=== PATIENT | female | born 1975 | race African-American/Black ===

== ENCOUNTER 2019-04-14 03:00 | Inpatient (IN) | payer OTHER ==
[2019-04-14 03:51] LABS: Hematocrit 39.7 % (30.3-42.9); Hemoglobin 13.8 gm/dl (10.1-14.3); Mean Corpuscular HGB Conc 35 % (30-34); Mean Corpuscular Volume 83 fl (79-97); Platelet Count 251 K/mm3 (140-440); Red Cell Distribution Width 14.5 % (13.2-15.2)
[2019-04-14 03:58] LABS: Calcium 9.7 mg/dL (8.4-10.2)
[2019-04-14] MEDS ORDERED: MORPHINE IV ONE (04:08)
[2019-04-14] MEDS ORDERED: ZOFRAN IV ONE (04:08)
[2019-04-14] MEDS ORDERED: NACL 0.9% 1000 ML 1,000 ML IV ONE (04:08)
--- NOTE | 2019-04-14 04:12 | Emergency Department Report ---
ED Abdominal Pain HPI - General Chief Complaint: Abdominal Pain Stated Complaint: ABD PAIN/N/N Time Seen by Provider: 04/14/19 04:02 Source: patient, family Mode of arrival: Ambulatory Limitations: Language Barrier - History of Present Illness Initial Comments: Mrs. Fu is a very pleasant 43-year-old female Swazi-speaking who presents with severe right lower quadrant and left lower quadrant abdominal pain. Daughter at the bedside provided Swazi interpretation. Pain began gradually 2 days ago on Sunday. Improved on Sunday. Then awakened her from sleep this morning. +vomiting and diarrhea. She has subjective fever with chills. She is healthy without significant past medical history. She did have a history of tubal ligation. No other reported abdominal surgeries. MD Complaint: abdominal pain -: Gradual, days(s) (2) Location: LLQ, RLQ Severity scale (0 -10): 10 Quality: cramping, sharp Consistency: constant Worsens With: movement Associated Symptoms: nausea, vomiting, diarrhea, fever, chills - Related Data Allergies Allergy/AdvReac Type Severity Reaction Status Date / Time No Known Allergies Allergy Unverified 04/14/19 03:09 ED Review of Systems ROS: Stated complaint: ABD PAIN/N/N Other details as noted in HPI Comment: All other systems reviewed and negative Constitutional: fever, malaise Gastrointestinal: abdominal pain, nausea, vomiting, diarrhea ED Past Medical Hx - Past Medical History Previous Medical History?: No - Surgical History Past Surgical History?: Yes Additional Surgical History: Tubaligation - Social History Smoking Status: Never Smoker Substance Use Type: None ED Physical Exam - General Limitations: Language Barrier General appearance: alert, other (nontoxic but appears uncomfortable in severe pain) - Head Head exam: Present: atraumatic, normocephalic - Eye Eye exam: Present: normal appearance - ENT ENT exam: Present: mucous membranes moist - Neck Neck exam: Present: normal inspection, full ROM - Respiratory Respiratory exam: Present: normal lung sounds bilaterally. Absent: respiratory distress, wheezes, rales, rhonchi - Cardiovascular Cardiovascular Exam: Present: normal rhythm, tachycardia, normal heart sounds. Absent: systolic murmur, diastolic murmur, rubs, gallop - GI/Abdominal GI/Abdominal exam: Present: soft, tenderness (right lower quadrant left lower quadrant tenderness), guarding, normal bowel sounds. Absent: distended, rebound - Extremities Exam Extremities exam: Present: normal inspection - Back Exam Back exam: Present: normal inspection - Neurological Exam Neurological exam: Present: alert, oriented X3 - Psychiatric Psychiatric exam: Present: normal affect, normal mood - Skin Skin exam: Present: warm, dry, intact, pallor. Absent: rash ED Course Vital Signs 04/14/19 04/14/19 04:03 04:25 Temperature 98.9 F Pulse Rate 118 H Respiratory 16 16 Rate Blood Pressure 103/64 [Left] O2 Sat by Pulse 100 Oximetry ED Medical Decision Making - Lab Data Result diagrams: 04/14/19 03:13 04/14/19 03:13 - Radiology Data Radiology results: report reviewed I spoke personally with the radiologist who informed me of CT findings of acute appendicitis with perforation - Medical Decision Making Acute appendicitis, sepsis Sepsis protocol instituted with IV fluid bolus antibiotics. Labs remarkable for severe leukocytosis 27,000, TORI I consulted general surgeon Dr. Denis Admitted to hospitalist service Critical care attestation.: If time is entered above; I have spent that time in minutes in the direct care of this critically ill patient, excluding procedure time. ED Disposition Clinical Impression: Acute perforated appendicitis, Sepsis, TORI (acute kidney injury) Disposition: OP ADMIT IP TO THIS HOSP Is pt being admited?: Yes Does the pt Need Aspirin: No Condition: Stable
[2019-04-14 04:23] LABS: Basophils % (Manual) 0 % (0.0-1.8); Eosinophils % (Manual) 0 % (0.0-4.3); Monocytes % (Manual) 4.5 % (0.0-7.3); Platelet Estimate Consistent w Auto; Total Cells Counted 200
[2019-04-14] MEDS ORDERED: NACL 0.9% 1000 ML IV ONE (04:41)
--- NOTE | 2019-04-14 05:21 | Cat Scan Report ---
PROCEDURE: CT ABDOMEN PELVIS WO CON TECHNIQUE: CT imaging is obtained through the abdomen and pelvis without contrast HISTORY: abd pain COMPARISONS: None FINDINGS: Imaged intrathoracic contents are unremarkable. Kidneys are normal in size, axis and position. No hydronephrosis or nephrolithiasis. The ureters are normal in course and caliber. No stones are seen within the urinary bladder. Retroverted uterus. The gallbladder is distended and contains multiple subcentimeter stones. Mild pericholecystic edema i s suggested. The liver, pancreas, spleen, and adrenal glands demonstrate an unremarkable noncontrast appearance. The appendix is dilated up to 2 cm and predominantly fluid-filled with adjacent stranding and edema. Small foci of possible extraluminal air are suggested near the origin of the appendix on axial series 2, image 126. Several appendicoliths are present at the origin measuring up to 13 mm. The small gisella l and colon are predominantly fluid-filled. There is a small volume of pelvic ascites. No marita pneum operitoneum or focal fluid collection to suggest abscess formation. Aorta is normal in course and caliber. Superficial soft tissues are unremarkable. No acute or aggressive appearing skeletal findings. IMPRESSION: Acute appendicitis. Small foci of extraluminal air adjacent to the origin of the appendix are concern ing for perforation. No marita pneumoperitoneum or abscess formation identified at this time. Dr. Taylor discussed findings with Dr. Washburn at 0417 Central Time on 04/14/2019 immediately following the examination. This document is electronically signed by Brett Taylor MD., Apr 14 2019 05:19:12 AM ET
[2019-04-14] MEDS ORDERED: SODIUM CHLORIDE FLUSH SYRINGE 10 ML IV PRN (05:41)
[2019-04-14] MEDS ORDERED: TYLENOL PO PRN (05:41)
--- NOTE | 2019-04-14 05:50 | History and Physical Report ---
History of Present Illness Date of examination: 04/14/19 History of present illness: 43-year-old woman with no medical history comes to the emergency room complaining of lower abdominal pain especially the right lower quadrant. Described the pain as a pressure-like sensation that started on Sunday, constant and radiated all over her belly, intensity 8/10. Pain felt bad on Sunday however he awoke her from sleep last night. Admits to fever chills Review of systems Constitutional: no weight loss Ears, eyes, nose, mouth and throat: no nasal congestion, no nasal discharge, no sinus pressure, no vision change, no red eye. Neck: No neck pain or rigidity. Cardiovascular: no palpitations, chest pain Respiratory: no cough, shortness of breath Gastrointestinal: no hematochezia Genitourinary : no frequency , no hematuria Musculoskeletal: no joint swelling or muscle ache Integumentary: no rash, no pruritis Neurological: no parathesias, no focal weakness Endocrine: no cold or heat intolerance, no polyuria or polydipsia Hematologic/Lymphatic: no easy bruising, no easy bleeding, no gland swelling Allergic/Immunologic: no urticaria, no angioedema. PAST MEDICAL HISTORY:none PAST SURGICAL HISTORY: Tubal ligation SOCIAL HISTORY: Denies alcohol, drugs, tobacco FAMILY HISTORY: Hypertension Medications and Allergies Allergies Allergy/AdvReac Type Severity Reaction Status Date / Time No Known Allergies Allergy Unverified 04/14/19 03:09 Home Medications Medication Instructions Recorded Confirmed Last Taken Type Amoxicillin/K Clav Tab [Augmentin 1 tab PO Q12HR #10 tab 04/16/19 Unknown Rx 875 mg] Fluconazole [Diflucan TAB] 200 mg PO QDAY #5 tablet 04/16/19 Unknown Rx oxyCODONE /ACETAMINOPHEN [Percocet 1 tab PO Q6H PRN #12 tablet 04/16/19 Unknown Rx 5/325 mg] Active Meds: Active Medications Acetaminophen (Tylenol) 650 mg PO Q4H PRN PRN Reason: Pain MILD(1-3)/Fever >100.5/OCAMPO Enoxaparin Sodium (Lovenox) 30 mg SUB-Q QDAY ANNA Metronidazole (Flagyl 500 Mg/100 Ml) 500 mg in 100 mls @ 100 mls/hr IV Q8HR ANNA; Protocol Sodium Chloride (Nacl 0.9% 1000 Ml) 1,000 mls @ 150 mls/hr IV DIRECT ANNA Morphine Sulfate (Morphine) 2 mg IV Q4H PRN PRN Reason: Pain, Moderate (4-6) Ondansetron HCl (Zofran) 4 mg IV Q4H PRN PRN Reason: Nausea And Vomiting Sodium Chloride (Sodium Chloride Flush Syringe 10 Ml) 10 ml IV BID ANNA Sodium Chloride (Sodium Chloride Flush Syringe 10 Ml) 10 ml IV PRN PRN PRN Reason: LINE FLUSH Exam - Physical Exam Narrative exam: General Apperance: The patient lying in bed, breathing comfortable HEENT: Normocephalic, atraumatic. Pupils equally round and reactive to light, EOMI, no sclericterus or JVD or thyromegaly or nodule. , no carotid bruit, mucous membranes moist, no exudate or erythema Heart: S1-S2, regular is rhythm Lungs: Clear to auscultation bilaterally, breathing comfortable Abdomen: Positive bowel sounds, soft, tender bilateral lower quadrant, no rebound or guarding, nondistended, no organomegaly Extremities: No edema cyanosis clubbing Skin: no rash, nodule, warm and dry Neuro: cranial nerves 2-12 intact, speech is fluent, motor/sensory intact - Constitutional Vitals: Temp Pulse Resp BP Pulse Ox 98.9 F 111 H 22 109/61 96 04/14/19 04:03 04/14/19 05:03 04/14/19 05:03 04/14/19 05:03 04/14/19 05:03 Results - Labs CBC & Chem 7: 04/16/19 09:39 04/16/19 09:39 Labs: Abnormal lab results 04/14/19 04/14/19 Range/Units 03:13 03:13 WBC 27.4 H (4.5-11.0) K/mm3 MCHC 35 H (30-34) % Seg Neuts % (Manual) 80.5 H (40.0-70.0) % Lymphocytes % (Manual) 0.5 L (13.4-35.0) % Seg Neutrophils # Man 22.1 H (1.8-7.7) K/mm3 Lymphocytes # (Manual) 0.1 L (1.2-5.4) K/mm3 Monocytes # (Manual) 1.2 H (0.0-0.8) K/mm3 Sodium 136 L (137-145) mmol/L Chloride 95.0 L (98-107) mmol/L Carbon Dioxide 19 L (22-30) mmol/L BUN 29 H (7-17) mg/dL Creatinine 2.6 H (0.7-1.2) mg/dL Glucose 133 H (65-100) mg/dL - Imaging and Cardiology CT scan - abdomen: report reviewed CT scan - pelvis: report reviewed Assessment and Plan Assessment Perforated appendicitis Acute renal failure Plan Admit to medicine start IV fluid, IV Zosyn, IV morphine surgery was consulted to see the patient in the emergency room Monitor kidney function, DVT prophylaxis
[2019-04-14 05:53] LABS: Calcium 8.9 mg/dL (8.4-10.2)
[2019-04-14] MEDS ORDERED: MAXIPIME/NS 2 GM/100 ML 2 GM/100 ML BAG IV SCH (06:00)
[2019-04-14] MEDS ORDERED: ZOSYN/NS 4.5GM/100ML 4.5 GM/100 ML VIAL IV SCH (06:00)
[2019-04-14] MEDS: ZOSYN/NS 2.25 GM/50ML 2.25 GM/50 ML BAG IV SCH ×3 (06:41→21:17)
[2019-04-14] MEDS: FLAGYL 500 MG/100 ML 500 MG/100 ML BAG IV SCH ×3 (07:31→23:14)
[2019-04-14] MEDS: NACL 0.9% 1000 ML 1,000 ML IV SCH ×2 (07:31→23:20)
[2019-04-14] MEDS ORDERED: NACL 0.9% 1000 ML 1,000 ML ONE ×3 (07:31→13:40)
[2019-04-14] MEDS ORDERED: ZOFRAN ONE ×3 (07:41→16:59)
[2019-04-14] MEDS ORDERED: MORPHINE ONE ×2 (07:41→16:40)
[2019-04-14] MEDS ORDERED: NACL 0.9% 1000 ML 1,000 ML IV SCH (08:00)
--- NOTE | 2019-04-14 09:24 | Event Note ---
Date: 04/14/19 Going to surgery for Perf appendicitis today
[2019-04-14] MEDS ORDERED: LOVENOX SUB-Q SCH (10:00)
--- NOTE | 2019-04-14 11:16 | Consultation ---
History of Present Illness Consult date: 04/14/19 Chief complaint: abdominal pain - History of present illness History of present illness: 43 yo F with no PMHx presents to ER with 3 days of worsening RLQ abdominal pain, sharp, nonradiating. No alleviating or exacerbating factors. Associated with n/v and f/c. She has never had pain like this before. Last BM yesterday. Past History Past Medical History: No medical history Past Surgical History: Social history: no significant social history Family history: no significant family history Medications and Allergies Allergies Allergy/AdvReac Type Severity Reaction Status Date / Time No Known Allergies Allergy Unverified 04/14/19 03:09 Active Meds: Active Medications Acetaminophen (Tylenol) 650 mg PO Q4H PRN PRN Reason: Pain MILD(1-3)/Fever >100.5/OCAMPO Metronidazole (Flagyl 500 Mg/100 Ml) 500 mg in 100 mls @ 100 mls/hr IV Q8HR ANNA; Protocol Last Admin: 04/14/19 07:31 Dose: 100 mls/hr Documented by: Sodium Chloride (Nacl 0.9% 1000 Ml) 1,000 mls @ 150 mls/hr IV DIRECT ANNA Last Admin: 04/14/19 07:31 Dose: 150 mls/hr Documented by: Piperacillin Sod/Tazobactam Sod (Zosyn/Ns 2.25 Gm/50ml) 2.25 gm in 50 mls @ 100 mls/hr IV Q6HR ANNA Last Admin: 04/14/19 06:41 Dose: 100 mls/hr Documented by: Sodium Chloride (Nacl 0.9% 1000 Ml) 1,000 mls @ 0 mls/hr IV ONCE ANNA Stop: 04/15/19 08:01 Morphine Sulfate (Morphine) 2 mg IV Q4H PRN PRN Reason: Pain, Moderate (4-6) Ondansetron HCl (Zofran) 4 mg IV Q4H PRN PRN Reason: Nausea And Vomiting Sodium Chloride (Sodium Chloride Flush Syringe 10 Ml) 10 ml IV BID ANNA Sodium Chloride (Sodium Chloride Flush Syringe 10 Ml) 10 ml IV PRN PRN PRN Reason: LINE FLUSH Review of Systems All systems: negative (10 pt ROS performed and negative except for that listed in HPI) Exam Vital Signs Temp Pulse Resp BP Pulse Ox 98.0 F 127 H 18 103/74 98 04/14/19 03:06 04/14/19 03:06 04/14/19 03:06 04/14/19 03:06 04/14/19 03:06 Narrative exam: Gen: AAOx3. NAD ENT: NO scleral icterus or conjunctival pallor CV: S1, S2+. tachy resp: even and unlabored Abd: soft, ND, + RLQ, RUQ, and epigastric TTP. no r/r/g. Well healed surgical scar ExT; no c/c/e Results - Labs 04/14/19 03:13 04/14/19 04:23 Abnormal lab results 04/14/19 04/14/19 04/14/19 Range/Units 03:13 03:13 04:23 WBC 27.4 H (4.5-11.0) K/mm3 MCHC 35 H (30-34) % Seg Neuts % (Manual) 80.5 H (40.0-70.0) % Lymphocytes % (Manual) 0.5 L (13.4-35.0) % Seg Neutrophils # Man 22.1 H (1.8-7.7) K/mm3 Lymphocytes # (Manual) 0.1 L (1.2-5.4) K/mm3 Monocytes # (Manual) 1.2 H (0.0-0.8) K/mm3 Sodium 136 L 135 L (137-145) mmol/L Chloride 95.0 L 93.9 L (98-107) mmol/L Carbon Dioxide 19 L 18 L (22-30) mmol/L BUN 29 H 35 H (7-17) mg/dL Creatinine 2.6 H 2.5 H (0.7-1.2) mg/dL Glucose 133 H 112 H (65-100) mg/dL Diabetes panel 04/14/19 04/14/19 Range/Units 03:13 04:23 Sodium 136 L 135 L (137-145) mmol/L Potassium 3.6 4.1 (3.6-5.0) mmol/L Chloride 95.0 L 93.9 L (98-107) mmol/L Carbon Dioxide 19 L 18 L (22-30) mmol/L BUN 29 H 35 H (7-17) mg/dL Creatinine 2.6 H 2.5 H (0.7-1.2) mg/dL Glucose 133 H 112 H (65-100) mg/dL Calcium 9.7 8.9 (8.4-10.2) mg/dL AST 19 (5-40) units/L ALT 12 (7-56) units/L Alkaline Phosphatase 95 (35-129) units/L Total Protein 7.9 (6.3-8.2) g/dL Albumin 4.0 (3.9-5) g/dL Calcium panel 04/14/19 04/14/19 Range/Units 03:13 04:23 Calcium 9.7 8.9 (8.4-10.2) mg/dL Albumin 4.0 (3.9-5) g/dL Pituitary panel 04/14/19 04/14/19 Range/Units 03:13 04:23 Sodium 136 L 135 L (137-145) mmol/L Potassium 3.6 4.1 (3.6-5.0) mmol/L Chloride 95.0 L 93.9 L (98-107) mmol/L Carbon Dioxide 19 L 18 L (22-30) mmol/L BUN 29 H 35 H (7-17) mg/dL Creatinine 2.6 H 2.5 H (0.7-1.2) mg/dL Glucose 133 H 112 H (65-100) mg/dL Calcium 9.7 8.9 (8.4-10.2) mg/dL Adrenal panel 04/14/19 04/14/19 Range/Units 03:13 04:23 Sodium 136 L 135 L (137-145) mmol/L Potassium 3.6 4.1 (3.6-5.0) mmol/L Chloride 95.0 L 93.9 L (98-107) mmol/L Carbon Dioxide 19 L 18 L (22-30) mmol/L BUN 29 H 35 H (7-17) mg/dL Creatinine 2.6 H 2.5 H (0.7-1.2) mg/dL Glucose 133 H 112 H (65-100) mg/dL Calcium 9.7 8.9 (8.4-10.2) mg/dL Total Bilirubin 1.10 (0.1-1.2) mg/dL AST 19 (5-40) units/L ALT 12 (7-56) units/L Alkaline Phosphatase 95 (35-129) units/L Total Protein 7.9 (6.3-8.2) g/dL Albumin 4.0 (3.9-5) g/dL - Imaging CT scan - abdomen: report reviewed, image reviewed CT scan - pelvis: report reviewed, image reviewed Assessment and Plan 43 yo F with acute appendicitis with localized perforation, sepsis Plan; 1. NPO 2. IVF - give additional 2 L NS bolus 3. abx 4. prn pain control 5. OR today for appendectomy - discussed all risks, benefits, and alternatives to surgery with patient and family at bedside, consent obtained. Thank you, please call with questions
[2019-04-14] MEDS ORDERED: FLAGYL 500 MG/100 ML 500 MG/100 ML BAG IV ONE (13:58)
[2019-04-14] MEDS: MORPHINE IV PRN ×2 (16:42→23:56)
[2019-04-14] MEDS: ZOFRAN IV PRN ×2 (16:42→23:57)
[2019-04-14] MEDS ORDERED: DECADRON ONE (16:59)
[2019-04-14] MEDS ORDERED: DIPRIVAN 10 MG/ML IV ONE (16:59)
[2019-04-14] MEDS ORDERED: ZEMURON IV ONE (16:59)
[2019-04-14] MEDS ORDERED: TORADOL ONE (16:59)
[2019-04-14] MEDS ORDERED: SUBLIMAZE ONE (16:59)
[2019-04-14] MEDS ORDERED: XYLOCAINE MPF 2% ONE (16:59)
[2019-04-14] MEDS ORDERED: XYLOCAINE 1% 20 mL ONE (17:39)
[2019-04-14] MEDS ORDERED: MARCAINE-EPI 0.25%-1:200,000 INFILTRATI ONE (17:39)
[2019-04-14] MEDS ORDERED: XYLOCAINE 1% 20 mL INFILTRATI ONE (17:43)
[2019-04-14] MEDS ORDERED: MARCAINE 0.5% INFILTRATI ONE (17:43)
[2019-04-14] MEDS ORDERED: NACL 0.9% IR ONE ×2 (17:43→18:13)
[2019-04-14] MEDS ORDERED: ROBINUL ONE (18:41)
[2019-04-14] MEDS ORDERED: BLOXIVERZ ONE (18:41)
--- NOTE | 2019-04-14 18:48 | Post Operative Note ---
Pre-op diagnosis: acute perforated appendicitis Post-op diagnosis: same Findings: perforation near the base of the appendix with localized feculent peritonitis Other Sales Support Worker surgeon: Dr. Ginny Dai Procedure: laparoscopic appendectomy Anesthesia: GETA, local Surgeon: PETR CHAVEZ Other Sales Support Worker: MARCUS BRONSON (Cosurgeon) Estimated blood loss: minimal Pathology: list (appendix) Specimen disposition: to lab Condition: stable Disposition: PACU
[2019-04-14] MEDS ORDERED: BREVIBLOC IV ONE (18:56)
[2019-04-14] MEDS ORDERED: DILAUDID IV PRN (18:57)
[2019-04-14] MEDS ORDERED: ZOFRAN IV PRN (18:57)
--- NOTE | 2019-04-14 18:58 | Anesthesia Consultation ---
Anesthesia Consult and Med Hx - Airway Anesthetic Teeth Evaluation: Good, Partials Mallampati Class: Class II Intubation Access Assessment: Good - Pulmonary Exam CTA: Yes - Cardiac Exam Cardiac Exam: RRR - Pre-Operative Health Status ASA Pre-Surgery Classification: ASA1 Proposed Anesthetic Plan: General - Pulmonary Hx Smoking: No - Cardiovascular System Hx Hypertension: No
--- NOTE | 2019-04-14 18:59 | Anesthesia Day of Surgery ---
Anesthesia Day of Surgery - Day of Surgery Patient Examined: Yes Patient H&P Reviewed: Yes Patient is NPO: Yes
--- NOTE | 2019-04-14 19:15 | Post Anesthesia Evaluation ---
- Post Anesthesia Evaluation Patient Participated: Yes Airway Patent: Yes Stable Respiratory Function: Yes Nausea/Vomiting: No Temp > 96.8F: Yes Pain Manageable: Yes Adequeate Hydration: Yes Anesthesia Complications: No Block Receding Appropriately: Not Applicable Patient on Ventilator: No
[2019-04-14] MEDS ORDERED: LACTATED RINGERS 1,000 ML ONE (19:42)
[2019-04-14] MEDS: SODIUM CHLORIDE FLUSH SYRINGE 10 ML IV SCH ×2 (21:06→21:17)
--- NOTE | 2019-04-14 21:07 | Operative Report ---
PREOPERATIVE DIAGNOSIS: Acute perforated appendicitis. POSTOPERATIVE DIAGNOSIS: Acute perforated appendicitis. FINDINGS: Perforation near the base of the appendix with localized feculent peritonitis. PROCEDURE: Laparoscopic appendectomy. ANESTHESIA: General endotracheal anesthesia, local. SURGEON: Mally Denis DO CO-SURGEON: Nikita Lantigua MD PRIVATE INQUIRY AGENT SURGEON: Ginny Dai MD ESTIMATED BLOOD LOSS: Minimal. PATHOLOGY: Appendix. SPECIMEN DISPOSITION: To lab. CONDITION: Stable. DISPOSITION: The patient to PACU. HISTORY OF PRESENT ILLNESS AND INDICATION: The patient is a 43-year-old female presented to the Emergency Room with 3 days of severe right lower quadrant abdominal pain, fevers and chills, nausea, vomiting. The patient was found to have a leukocytosis on labs of 27.4, acute kidney injury with creatinine of 2.6 and on CAT scan was found to have appendicitis with localized perforation. Appendectomy was recommended. The patient was aggressively resuscitated with IV fluids, started on antibiotics and pain medication and admitted to the hospital. I discussed all risks, benefits, alternatives to surgery with the patient and her family at the bedside and all questions answered. Consent was obtained. PROCEDURE IN DETAIL: The patient was identified in the preoperative area, taken back to the operating room, placed on the operating table in supine position. After anesthesia was induced, the left arm was tucked and the abdomen was prepped and draped in the usual sterile fashion. The patient already had a Leiva catheter from the Emergency Room due to urinary retention. The local anesthetic was infiltrated into all skin incision sites. A emory incision was made in the left upper quadrant at Todd's point through which a Veress needle was inserted. The Veress needle position was confirmed using the saline drop test and the abdomen insufflated to 15 mmHg. Once the abdomen was insufflated, a 5 mm incision was made above the umbilicus through, which a 5 mm Optiview trocar was placed. The Veress needle was identified and there was no underlying injury and its tract and so it was removed. The remainder of the abdomen was inspected. There was no underlying injury. An additional 12 mm left lower quadrant trocar was then placed under direct visualization and a 5 mm suprapubic trocar under direct visualization. The patient was placed in Trendelenburg and tilted to the left. The right lower quadrant was visualized and there was severe inflammation and induration of the omentum in this area. The ileocecal junction was identified as well as a very dilated and inflamed appendix. The omentum was adhered to the appendix and this was carefully dissected away using a combination of blunt dissection and Harmonic scalpel. Once the tip of the appendix was identified, we worked our way proximally to identify the base. A 1 cm perforation was seen near the base of the appendix with adjacent feculent peritonitis. This area was suctioned in order to control the spillage. Once the appendix was completely freed from the surrounding tissue the mesentery was ligated using the Harmonic scalpel. This was taken down, then close to the appendix to the base of the appendix. The base of the appendix was slightly thickened; however, healthy appearing. The cecum was examined and was covered by fibrinous exudate; however, was not involved. The base of the appendix was transected using an [employer] flex 45 mm white load stapler. The staple line as well as the mesentery was carefully examined for hemostasis, which was ensured. The appendix was placed into an EndoCatch bag and removed via the 12 mm port. There were several fecalith present in the appendix. The right lower quadrant was then suctioned and irrigated with saline. The pelvis was then inspected and there was some purulent fluid, which was also aspirated and the pelvis was irrigated until the irrigant returned clear. The patient was then placed into neutral position and a 19-Icelandic Abilio drain was passed into the abdomen and brought out through the 5 mm suprapubic trocar. This was positioned in the right lower quadrant and pelvis and sutured to the skin using a 3-0 nylon drain stitch. The 12 mm port was then removed and the fascia closed with interrupted 0 Vicryl sutures using the Armani-Ishmael device. The remaining port was then removed and the abdomen desufflated. The skin incisions were once again infiltrated with local anesthetic and closed with 4-0 Monocryl subcuticular stitches and skin glue. Sponge was applied around the drain and secured with tape. At the end of the case, all sponge, instrument, sharp counts were correct x 2. The patient was awoken from anesthesia and taken to PACU in stable condition. JOB# [id number]/PRICILLA
[2019-04-15] MEDS: ZOSYN/NS 2.25 GM/50ML 2.25 GM/50 ML BAG IV SCH ×2 (03:39→05:05)
[2019-04-15] MEDS: MORPHINE IV PRN (05:03)
[2019-04-15] MEDS: FLAGYL 500 MG/100 ML 500 MG/100 ML BAG IV SCH ×2 (05:06→13:29)
[2019-04-15 05:20] LABS: Hematocrit 29.1 % (30.3-42.9); Mean Corpuscular HGB Conc 34 % (30-34); Mean Corpuscular Volume 84 fl (79-97); Platelet Count 142 K/mm3 (140-440); Red Blood Count 3.47 M/mm3 (3.65-5.03); Red Cell Distribution Width 14.7 % (13.2-15.2)
[2019-04-15 05:41] LABS: BUN/Creatinine Ratio 33; Blood Urea Nitrogen 23 mg/dL (7-17)
[2019-04-15 05:42] LABS: Calcium 7.8 mg/dL (8.4-10.2); Hemolysis Index 1
[2019-04-15 06:23] LABS: Band Neutrophils # (Manual) 3.9 K/mm3; Basophils % (Manual) 0 % (0.0-1.8); Eosinophils % (Manual) 0 % (0.0-4.3); Total Cells Counted 100
[2019-04-15 06:24] LABS: Platelet Estimate Consistent w Auto
[2019-04-15] MEDS ORDERED: K-DUR PO ONE (10:00)
--- NOTE | 2019-04-15 10:30 | Consultation ---
Past History Past Medical History: No medical history Past Surgical History: Social history: no significant social history Family history: no significant family history Medications and Allergies Allergies Allergy/AdvReac Type Severity Reaction Status Date / Time No Known Allergies Allergy Unverified 04/14/19 03:09 Home Medications Medication Instructions Recorded Confirmed Last Taken Type No Known Home Medications [No 04/14/19 04/14/19 Unknown History Reported Home Medications] Active Meds: Active Medications Acetaminophen (Tylenol) 650 mg PO Q4H PRN PRN Reason: Pain MILD(1-3)/Fever >100.5/OCAMPO Metronidazole (Flagyl 500 Mg/100 Ml) 500 mg in 100 mls @ 100 mls/hr IV Q8HR ANNA; Protocol Last Infusion: 04/15/19 06:34 Dose: Infused Documented by: Sodium Chloride (Nacl 0.9% 1000 Ml) 1,000 mls @ 150 mls/hr IV DIRECT ANNA Last Admin: 04/14/19 23:20 Dose: 150 mls/hr Documented by: Piperacillin Sod/Tazobactam Sod (Zosyn/Ns 2.25 Gm/50ml) 2.25 gm in 50 mls @ 100 mls/hr IV Q6HR ANNA Last Infusion: 04/15/19 06:30 Dose: Infused Documented by: Morphine Sulfate (Morphine) 2 mg IV Q4H PRN PRN Reason: Pain, Moderate (4-6) Last Admin: 04/15/19 05:03 Dose: 2 mg Documented by: Ondansetron HCl (Zofran) 4 mg IV Q4H PRN PRN Reason: Nausea And Vomiting Last Admin: 04/14/19 23:57 Dose: 4 mg Documented by: Ondansetron HCl (Zofran) 4 mg IV ONCE PRN PRN Reason: Nausea And Vomiting Sodium Chloride (Sodium Chloride Flush Syringe 10 Ml) 10 ml IV BID ANNA Last Admin: 04/14/19 21:17 Dose: 10 ml Documented by: Sodium Chloride (Sodium Chloride Flush Syringe 10 Ml) 10 ml IV PRN PRN PRN Reason: LINE FLUSH Exam Vital Signs Temp Pulse Resp BP Pulse Ox 98.0 F 127 H 18 103/74 98 04/14/19 03:06 04/14/19 03:06 04/14/19 03:06 04/14/19 03:06 04/14/19 03:06 Results - Labs 04/15/19 04:15 04/15/19 04:15 Abnormal lab results 04/15/19 04/15/19 Range/Units 04:15 04:15 RBC 3.47 L (3.65-5.03) M/mm3 Hgb 10.0 L D (10.1-14.3) gm/dl Hct 29.1 L D (30.3-42.9) % Lymphocytes % (Manual) 2.0 L (13.4-35.0) % Lymphocytes # (Manual) 0.2 L (1.2-5.4) K/mm3 Potassium 3.5 L (3.6-5.0) mmol/L Chloride 107.8 H (98-107) mmol/L BUN 23 H (7-17) mg/dL Glucose 125 H (65-100) mg/dL Calcium 7.8 L (8.4-10.2) mg/dL Diabetes panel 04/15/19 Range/Units 04:15 Sodium 139 (137-145) mmol/L Potassium 3.5 L (3.6-5.0) mmol/L Chloride 107.8 H (98-107) mmol/L Carbon Dioxide 22 (22-30) mmol/L BUN 23 H (7-17) mg/dL Creatinine 0.7 D (0.7-1.2) mg/dL Glucose 125 H (65-100) mg/dL Calcium 7.8 L (8.4-10.2) mg/dL Calcium panel 04/15/19 Range/Units 04:15 Calcium 7.8 L (8.4-10.2) mg/dL Pituitary panel 04/15/19 Range/Units 04:15 Sodium 139 (137-145) mmol/L Potassium 3.5 L (3.6-5.0) mmol/L Chloride 107.8 H (98-107) mmol/L Carbon Dioxide 22 (22-30) mmol/L BUN 23 H (7-17) mg/dL Creatinine 0.7 D (0.7-1.2) mg/dL Glucose 125 H (65-100) mg/dL Calcium 7.8 L (8.4-10.2) mg/dL Adrenal panel 04/15/19 Range/Units 04:15 Sodium 139 (137-145) mmol/L Potassium 3.5 L (3.6-5.0) mmol/L Chloride 107.8 H (98-107) mmol/L Carbon Dioxide 22 (22-30) mmol/L BUN 23 H (7-17) mg/dL Creatinine 0.7 D (0.7-1.2) mg/dL Glucose 125 H (65-100) mg/dL Calcium 7.8 L (8.4-10.2) mg/dL
--- NOTE | 2019-04-15 10:31 | Progress Note ---
Assessment and Plan 43 yo F s/p laparoscopic appendectomy, POD 1 Plan: 1. soft diet 2. dc lang 3. ROBBIN drain - monitor output 4. change to maintenance IVF 5. OOB/ambulate 6. DVT ppx 7. prn PO pain control 8. ID consult Thank you, please call with questions. Subjective Date of service: 04/15/19 Narrative: Pt seen and examined. c/o incisional pain. Tolerating diet. No f/c, n/v. Objective Vital Signs - 12hr 04/14/19 04/15/19 23:57 04:34 Temperature 97.3 F L 97.4 F L Pulse Rate 70 71 Respiratory 18 18 Rate Blood Pressure 105/72 122/82 O2 Sat by Pulse 99 98 Oximetry - General physical appearance Narrative Exam: Gen: AAOx3. NAD CV: s1, S2+ resp; even and unlabored Abd: soft, ND, + periincisional TTP. no r/r/g. Incisions c/d/i. ROBBIN drain purulent. Ext: no c/c/e - Labs 04/15/19 04:15 04/15/19 04:15 Diabetes panel 04/15/19 Range/Units 04:15 Sodium 139 (137-145) mmol/L Potassium 3.5 L (3.6-5.0) mmol/L Chloride 107.8 H (98-107) mmol/L Carbon Dioxide 22 (22-30) mmol/L BUN 23 H (7-17) mg/dL Creatinine 0.7 D (0.7-1.2) mg/dL Glucose 125 H (65-100) mg/dL Calcium 7.8 L (8.4-10.2) mg/dL Calcium panel 04/15/19 Range/Units 04:15 Calcium 7.8 L (8.4-10.2) mg/dL Pituitary panel 04/15/19 Range/Units 04:15 Sodium 139 (137-145) mmol/L Potassium 3.5 L (3.6-5.0) mmol/L Chloride 107.8 H (98-107) mmol/L Carbon Dioxide 22 (22-30) mmol/L BUN 23 H (7-17) mg/dL Creatinine 0.7 D (0.7-1.2) mg/dL Glucose 125 H (65-100) mg/dL Calcium 7.8 L (8.4-10.2) mg/dL Adrenal panel 04/15/19 Range/Units 04:15 Sodium 139 (137-145) mmol/L Potassium 3.5 L (3.6-5.0) mmol/L Chloride 107.8 H (98-107) mmol/L Carbon Dioxide 22 (22-30) mmol/L BUN 23 H (7-17) mg/dL Creatinine 0.7 D (0.7-1.2) mg/dL Glucose 125 H (65-100) mg/dL Calcium 7.8 L (8.4-10.2) mg/dL
--- NOTE | 2019-04-15 11:28 | Progress Note ---
Assessment and Plan Assessment and plan: Perforated appendicitis s/p laparoscopic appendectomy Acute kidney injury Now resolved Cr 0.7 today Sepsis due to perforated appendix ID consulted On [facility] and charles Full piedad status History Interval history: Less abd pain Hospitalist Physical - Physical exam Narrative exam: Gen: Not in acute distress, lying in bed, HEENT: Normocephalic, atraumatic Neck: supple, no JVD Heart: S1 and S2 reg, no murmurs, rubs or gallop Lungs: Clear, no crackles, no wheeze Abd: soft, mild tender, surgical drain, BS present Ext:No edema, no clubbing, no cyanosis Neuro: Awake,alert, oriented x 3, moves all ext, non focal Psych:Normal mood - Constitutional Vitals: Temp Pulse Resp BP Pulse Ox 97.4 F L 71 18 122/82 98 04/15/19 04:34 04/15/19 04:34 04/15/19 04:34 04/15/19 04:34 04/15/19 04:34 Results - Labs CBC & Chem 7: 04/15/19 04:15 04/15/19 04:15 Labs: Laboratory Last Values WBC 10.1 K/mm3 (4.5-11.0) 04/15/19 04:15 RBC 3.47 M/mm3 (3.65-5.03) L 04/15/19 04:15 Hgb 10.0 gm/dl (10.1-14.3) L D 04/15/19 04:15 Hct 29.1 % (30.3-42.9) L D 04/15/19 04:15 MCV 84 fl (79-97) 04/15/19 04:15 MCH 29 pg (28-32) 04/15/19 04:15 MCHC 34 % (30-34) 04/15/19 04:15 RDW 14.7 % (13.2-15.2) 04/15/19 04:15 Plt Count 142 K/mm3 (140-440) 04/15/19 04:15 Add Manual Diff Complete 04/15/19 04:15 Total Counted 100 04/15/19 04:15 Seg Neutrophils % Frame Pulley Mortising Machine Operator 04/15/19 04:15 Seg Neuts % (Manual) 58.0 % (40.0-70.0) 04/15/19 04:15 39.0 % 04/15/19 04:15 2.0 % (13.4-35.0) L 04/15/19 04:15 Reactive Lymphs % (Man) 0 % 04/15/19 04:15 1.0 % (0.0-7.3) 04/15/19 04:15 0 % (0.0-4.3) 04/15/19 04:15 0 % (0.0-1.8) 04/15/19 04:15 0 % 04/15/19 04:15 0 % 04/15/19 04:15 0 % 04/15/19 04:15 0 % 04/15/19 04:15 Nucleated RBC % Not Reportable 04/15/19 04:15 Seg Neutrophils # Man 5.9 K/mm3 (1.8-7.7) 04/15/19 04:15 Band Neutrophils # 3.9 K/mm3 04/15/19 04:15 0.2 K/mm3 (1.2-5.4) L 04/15/19 04:15 Abs React Lymphs (Man) 0.0 K/mm3 04/15/19 04:15 0.1 K/mm3 (0.0-0.8) 04/15/19 04:15 0.0 K/mm3 (0.0-0.4) 04/15/19 04:15 0.0 K/mm3 (0.0-0.1) 04/15/19 04:15 0.0 K/mm3 04/15/19 04:15 0.0 K/mm3 04/15/19 04:15 0.0 K/mm3 04/15/19 04:15 Blast Cells # 0.0 K/mm3 04/15/19 04:15 WBC Morphology Not Reportable 04/15/19 04:15 WBC Morphology TNR 04/15/19 04:15 Hypersegmented Neuts Not Reportable 04/15/19 04:15 Hyposegmented Neuts Not Reportable 04/15/19 04:15 Hypogranular Neuts Not Reportable 04/15/19 04:15 Not Reportable 04/15/19 04:15 Not Reportable 04/15/19 04:15 Not Reportable 04/15/19 04:15 Not Reportable 04/15/19 04:15 Not Reportable 04/15/19 04:15 Not Reportable 04/15/19 04:15 Consistent w auto 04/15/19 04:15 Not Reportable 04/15/19 04:15 Plt Clumps, EDTA Not Reportable 04/15/19 04:15 Not Reportable 04/15/19 04:15 Not Reportable 04/15/19 04:15 Not Reportable 04/15/19 04:15 Plt Morphology Comment Not Reportable 04/15/19 04:15 RBC Morphology Not Reportable 04/15/19 04:15 Dimorphic RBCs Not Reportable 04/15/19 04:15 Not Reportable 04/15/19 04:15 Not Reportable 04/15/19 04:15 Not Reportable 04/15/19 04:15 Not Reportable 04/15/19 04:15 Not Reportable 04/15/19 04:15 Not Reportable 04/15/19 04:15 Not Reportable 04/15/19 04:15 Not Reportable 04/15/19 04:15 Not Reportable 04/15/19 04:15 Not Reportable 04/15/19 04:15 Not Reportable 04/15/19 04:15 Not Reportable 04/15/19 04:15 Not Reportable 04/15/19 04:15 Not Reportable 04/15/19 04:15 Not Reportable 04/15/19 04:15 Not Reportable 04/15/19 04:15 Not Reportable 04/15/19 04:15 Not Reportable 04/15/19 04:15 Not Reportable 04/15/19 04:15 Acanthocytes (Spur) Not Reportable 04/15/19 04:15 Rouleaux Not Reportable 04/15/19 04:15 Not Reportable 04/15/19 04:15 Not Reportable 04/15/19 04:15 Not Reportable 04/15/19 04:15 Not Reportable 04/15/19 04:15 Hem Pathologist Commnt No 04/15/19 04:15 Sodium 139 mmol/L (137-145) 04/15/19 04:15 Potassium 3.5 mmol/L (3.6-5.0) L 04/15/19 04:15 Chloride 107.8 mmol/L (98-107) H 04/15/19 04:15 Carbon Dioxide 22 mmol/L (22-30) 04/15/19 04:15 13 mmol/L 04/15/19 04:15 BUN 23 mg/dL (7-17) H 04/15/19 04:15 0.7 mg/dL (0.7-1.2) D 04/15/19 04:15 Estimated GFR > 60 ml/min 04/15/19 04:15 33 % 04/15/19 04:15 Glucose 125 mg/dL (65-100) H 04/15/19 04:15 Lactic Acid 1.30 mmol/L (0.7-2.0) 04/14/19 11:52 Calcium 7.8 mg/dL (8.4-10.2) L 04/15/19 04:15 1.10 mg/dL (0.1-1.2) 04/14/19 03:13 AST 19 units/L (5-40) 04/14/19 03:13 ALT 12 units/L (7-56) 04/14/19 03:13 95 units/L (35-129) 04/14/19 03:13 7.9 g/dL (6.3-8.2) 04/14/19 03:13 4.0 g/dL (3.9-5) 04/14/19 03:13 1.0 % 04/14/19 03:13 HCG, Qual Negative (Negative) 04/14/19 04:23 Active Medications - Current Medications Current Medications: Generic Name Dose Route Start Last Admin Trade Name Freq PRN Reason Stop Dose Admin Acetaminophen 650 mg 04/14/19 05:41 Tylenol PO Q4H PRN Pain MILD(1-3)/Fever >100.5/OCAMPO Metronidazole 500 mg in 100 mls @ 100 mls/hr 04/14/19 06:00 04/15/19 06:34 Flagyl 500 Mg/100 Ml IV Infused Q8HR ANNA Infusion Protocol Dextrose/Sodium Chloride 1,000 mls @ 75 mls/hr 04/15/19 11:00 D5/0.45ns IV DIRECT ANNA Piperacillin Sod/Tazobactam Sod 4.5 gm in 100 mls @ 200 mls/hr 04/15/19 14:00 Zosyn/Ns 4.5gm/100ml IV Q8HR ANNA Morphine Sulfate 2 mg 04/14/19 05:41 04/15/19 05:03 Morphine IV 2 mg Q4H PRN Administration Pain, Moderate (4-6) Ondansetron HCl 4 mg 04/14/19 05:41 04/14/19 23:57 Zofran IV 4 mg Q4H PRN Administration Nausea And Vomiting Oxycodone/Acetaminophen 1 tab 04/15/19 11:00 Percocet 5/325 PO Q4H PRN Pain, Moderate (4-6) Sodium Chloride 10 ml 04/14/19 10:00 04/14/19 21:17 Sodium Chloride Flush Syringe 10 Ml IV 10 ml BID ANNA Administration Sodium Chloride 10 ml 04/14/19 05:41 Sodium Chloride Flush Syringe 10 Ml IV PRN PRN LINE FLUSH
[2019-04-15] MEDS: D5/0.45NS 1,000 ML IV SCH (12:21)
[2019-04-15] MEDS: SODIUM CHLORIDE FLUSH SYRINGE 10 ML IV SCH ×2 (12:22→20:59)
[2019-04-15] MEDS: PERCOCET 5/325 PO PRN (12:22)
--- NOTE | 2019-04-15 13:51 | Consultation ---
History of Present Illness - Reason for Consult Consult date: 04/15/19 acute perforated appendicitis Requesting physician: JYOTI GOLDSMITH - History of Present Illness 43 y/o female with no medical history admitted on 04/14/2019 due to a 3-day history of severe lower abdominal pain associated with nausea and multiple vomiting. Patient then radiated to the RLQ, was sharp and 10 of 10. She felt some relief after vomiting so she thought she was getting better. Denies fever, chills, urinary symptoms. In the ED, mattie 98, HR 127, R 18, BP 103/74. WBC 27. Hg 13. Plat 251. Creat 2.6. Lactate 1.9. Blood cultures 04/14/[address] abdomen showed appendix is dilated up to 2 cm and predominantly fluid-filled with adjacent stranding and edema. Small foci of possible extraluminal air are suggested near the origin of the appendix. Patient was taken to the OR on 04/14/2019 underwent laparoscopic appendectomy found to have perforation near the base of the appendix with localized feculent peritonitis. Review of Systems: General: no fever, no chills, +malaise Cutaneous: no rash, pruritus Head: no headaches or injury Eyes: no changes in vision, eye pain, double vision Ears: no ear pain, ear discharge, ringing or hearing loss Nose: no nose bleeding, stuffiness Mouth & throat: no bleeding gums, no horseness, no dental problems, or swollen glands Neck: no pain, node enlargement/lumps, tyroid enlargement or tenderness Respiratory: no cough, wheezing, sputum, hemoptysis, pleuritic chest pain Cardiovascular: no chest pain, leg edema, cyanosis, DOOLEY, orthopnea Musculoskeletal: no edema, tenderness and erythema Gastrointestinal: +abdominal pain +nausea, + vomiting, no hematemesis, diarrhea, constipation, melena, bright red blood in stools, fecal incontinence, jaundice Genitourinary/Reproductive: no frequent urination, dysuria, hematuria, incontinence Neurogical: no headaches, no seizures, no headaches, no weakness, no paresthesias, no loss of speech or vision; no memory loss, no vertigo, no tremors, no numbness Psychiatric: stable mood; no excessive anxiety, sadness or moodiness Past History Past Medical History: No medical history Past Surgical History: Social history: no significant social history Family history: no significant family history Medications and Allergies Allergies Allergy/AdvReac Type Severity Reaction Status Date / Time No Known Allergies Allergy Unverified 04/14/19 03:09 Home Medications Medication Instructions Recorded Confirmed Last Taken Type No Known Home Medications [No 04/14/19 04/14/19 Unknown History Reported Home Medications] Active Meds: Active Medications Acetaminophen (Tylenol) 650 mg PO Q4H PRN PRN Reason: Pain MILD(1-3)/Fever >100.5/OCAMPO Metronidazole (Flagyl 500 Mg/100 Ml) 500 mg in 100 mls @ 100 mls/hr IV Q8HR ANNA; Protocol Last Admin: 04/15/19 13:29 Dose: 100 mls/hr Documented by: Dextrose/Sodium Chloride (D5/0.45ns) 1,000 mls @ 75 mls/hr IV DIRECT ANNA Last Admin: 04/15/19 12:21 Dose: 75 mls/hr Documented by: Piperacillin Sod/Tazobactam Sod (Zosyn/Ns 4.5gm/100ml) 4.5 gm in 100 mls @ 200 mls/hr IV Q8HR ANNA Morphine Sulfate (Morphine) 2 mg IV Q4H PRN PRN Reason: Pain, Moderate (4-6) Last Admin: 04/15/19 05:03 Dose: 2 mg Documented by: Ondansetron HCl (Zofran) 4 mg IV Q4H PRN PRN Reason: Nausea And Vomiting Last Admin: 04/14/19 23:57 Dose: 4 mg Documented by: Oxycodone/Acetaminophen (Percocet 5/325) 1 tab PO Q4H PRN PRN Reason: Pain, Moderate (4-6) Last Admin: 04/15/19 12:22 Dose: 1 tab Documented by: Sodium Chloride (Sodium Chloride Flush Syringe 10 Ml) 10 ml IV BID ANNA Last Admin: 04/15/19 12:22 Dose: 10 ml Documented by: Sodium Chloride (Sodium Chloride Flush Syringe 10 Ml) 10 ml IV PRN PRN PRN Reason: LINE FLUSH Physical Examination - Physical Exam Narrative exam: General appearance: Alert in NAD pleasant Eyes: anicteric sclerae, moist conjunctivae; no lid-lag; PERRLA HENT: Atraumatic; oropharynx clear with moist mucous membranes and no mucosal ulcerations/no oral thrush; normal hard and soft palate. Normal external ears. Neck: Trachea midline; supple, no thyromegaly or lymphadenopathy Lungs: CTA griffin CV: RRR Abdomen: Soft, midline surgical wound with dressing +drain Extremities: no edema Skin: Normal temperature, turgor and texture; no rash, ulcers or subcutaneous nodules Psych: Appropriate affect, alert and oriented to person, place and time. Neuro: alert and oriented x 3. Moving all extermities - Constitutional Vitals: Vital Signs Temp Pulse Resp BP Pulse Ox 97.4 F L 71 18 122/82 97 04/15/19 04:34 04/15/19 04:34 04/15/19 04:34 04/15/19 04:34 04/15/19 13:05 Temperature -Last 24 Hours Temperature 97.4 F Temperature 97.3 F Temperature 98.8 F Temperature 98.8 F Temperature 98.1 F Temperature 98.7 F Temperature 99.3 F Results - Labs CBC & Chem 7: 04/15/19 04:15 04/15/19 04:15 Labs: Abnormal lab results 04/15/19 04/15/19 Range/Units 04:15 04:15 RBC 3.47 L (3.65-5.03) M/mm3 Hgb 10.0 L D (10.1-14.3) gm/dl Hct 29.1 L D (30.3-42.9) % Lymphocytes % (Manual) 2.0 L (13.4-35.0) % Lymphocytes # (Manual) 0.2 L (1.2-5.4) K/mm3 Potassium 3.5 L (3.6-5.0) mmol/L Chloride 107.8 H (98-107) mmol/L BUN 23 H (7-17) mg/dL Glucose 125 H (65-100) mg/dL Calcium 7.8 L (8.4-10.2) mg/dL Assessment and Plan Cultures: Blood cultures 04/14/2019 no growth so far. Assessment: 43 y/o female with no medical history admitted on 04/14/2019 due to a 3-day history of severe lower abdominal pain associated with nausea and multiple vomitin) Fever: Present on admission, with hypotension, leukocytosis, TORI. Blood cultures 04/14/2019 no growth so far. 2) Acute perforated appendicitis with fecal peritonitis: CT abdomen showed appendix is dilated up to 2 cm and predominantly fluid-filled with adjacent stranding and edema. Small foci of possible extraluminal air are suggested near the origin of the appendix. Patient was taken to the OR on 04/14/2019 underwent laparoscopic appendectomy found to have perforation near the base of the appendix with localized feculent peritonitis. 3) TORI: resolved Recommendations: - stop zosyn - no need to cover Pseudomonas - start unasyn 3 gm IV q 6 hours - start fluconazole 400 mg IV - check CRP - once she is able to tolerate PO will do PO augmentin and fluconazole for 7-10 days Will follow. Johanna Rodriguez MD Infectious Diseases Pyrometallurgical Engineer [facility] M [phone] O [phone]
[2019-04-15] MEDS ORDERED: ZOSYN/NS 4.5GM/100ML 4.5 GM/100 ML VIAL IV SCH (14:00)
[2019-04-15] MEDS: UNASYN/NS 3 GM/100 ML 3 GM/100 ML BAG IV SCH (15:40)
[2019-04-15] MEDS: DIFLUCAN 200 ML IV SCH (16:33)
[2019-04-16] MEDS: UNASYN/NS 3 GM/100 ML 3 GM/100 ML BAG IV SCH ×3 (00:36→12:00)
[2019-04-16] MEDS: PERCOCET 5/325 PO PRN (00:37)
[2019-04-16 04:08] VITALS: BP 120/78
[2019-04-16] MEDS: D5/0.45NS 1,000 ML IV SCH (05:20)
--- NOTE | 2019-04-16 09:35 | Progress Note ---
Assessment and Plan Cultures: Blood cultures 04/14/2019 no growth so far. Assessment: 43 y/o female with no medical history admitted on 04/14/2019 due to a 3-day history of severe lower abdominal pain associated with nausea and multiple vomitin) Fever: resolved,. Blood cultures 04/14/2019 no growth so far. CRP 33.80 2) Acute perforated appendicitis with fecal peritonitis: CT abdomen showed appendix is dilated up to 2 cm and predominantly fluid-filled with adjacent stranding and edema. Small foci of possible extraluminal air are suggested near the origin of the appendix. Patient was taken to the OR on 04/14/2019 underwent laparoscopic appendectomy found to have perforation near the base of the appendix with localized feculent peritonitis. 3) TORI: resolved Recommendations: - continue unasyn 3 gm IV q 6 hours - continue fluconazole 200 mg IV - Anticipate discharge on Augmentin 875mg PO BID.and fluconazole 200 mg every 24 hours for total 7 days ending 04-21-19. [facility] M: [phone] O:[phone] Subjective Date of service: 04/16/19 Interval history: Patient seen and examined. Sitting up in bed. Reports no generalized weakness, SOB . No fevers. Daughter at bedside. Objective - Exam Narrative Exam: General appearance: Alert in NAD pleasant Eyes: anicteric sclerae, moist conjunctivae; no lid-lag; PERRLA HENT: Atraumatic; oropharynx clear with moist mucous membranes and no mucosal u lcerations/no oral thrush; normal hard and soft palate. Normal external ears. Neck: Trachea midline; supple, no thyromegaly or lymphadenopathy Lungs: CTA griffin CV: RRR Abdomen: Soft, midline surgical wound with dressing +drain with 30 ml of purulent drainage Extremities: no edema Skin: Normal temperature, turgor and texture; no rash, ulcers or subcutaneous nodules Psych: Appropriate affect, alert and oriented to person, place and time. Neuro: alert and oriented x 3. Moving all extermities - Constitutional Vitals: Vital Signs Temp Pulse Resp BP Pulse Ox 97.7 F 57 L 18 120/78 96 04/16/19 04:06 04/16/19 04:06 04/16/19 04:06 04/16/19 04:06 04/16/19 04:06 Temperature -Last 24 Hours Temperature 97.7 F Temperature 98.0 F Temperature 97.7 F - Labs CBC & Chem 7: 04/16/19 09:39 04/16/19 09:39 Labs: Abnormal lab results 04/15/19 Range/Units 14:23 C-Reactive Protein 33.80 H (0.00-1.30) mg/dL
[2019-04-16 10:06] LABS: Hematocrit 29.5 % (30.3-42.9); Hemoglobin 9.9 gm/dl (10.1-14.3); Mean Corpuscular HGB Conc 34 % (30-34); Mean Corpuscular Volume 84 fl (79-97); Platelet Count 189 K/mm3 (140-440); Red Blood Count 3.51 M/mm3 (3.65-5.03); Red Cell Distribution Width 14.7 % (13.2-15.2)
[2019-04-16 10:30] LABS: BUN/Creatinine Ratio 37; Blood Urea Nitrogen 22 mg/dL (7-17); Calcium 8.1 mg/dL (8.4-10.2); Hemolysis Index 29
[2019-04-16] MEDS: DIFLUCAN 200 ML IV SCH (10:48)
[2019-04-16] MEDS: SODIUM CHLORIDE FLUSH SYRINGE 10 ML IV SCH (10:49)
--- NOTE | 2019-04-16 11:08 | Progress Note ---
Assessment and Plan 43 yo F s/p laparoscopic appendectomy, POD 2 Plan: 1. soft diet 2. ROBBIN drain - monitor output. Will DC with drain. Nursing to do ROBBIN drain teaching. 3. dc IVF, chain builder loom control normal 4. OOB/ambulate 5. DVT ppx 6. prn PO pain control 7. ID consult appreciated - transition to oral abx Ok to dc home with 7-10 f/u in surgery office. Discussed with Dr. El Thank you, please call with questions. Subjective Date of service: 04/16/19 Narrative: Pt seen and examined. Minimal incisional pain. No f/c. No n/v. Tolerating diet. Objective Vital Signs - 12hr 04/16/19 04/16/19 00:07 04:06 Temperature 98.0 F 97.7 F Pulse Rate 61 57 L Respiratory 20 18 Rate Blood Pressure 130/83 120/78 O2 Sat by Pulse 98 96 Oximetry - General physical appearance Narrative Exam: Gen: AAOx3. NAD CV: s1, S2+ resp; even and unlabored Abd: soft, NT, ND. Incisions c/d/i. ROBBIN drain serous cloudy with some fibrinous material Ext; no c/c/e - Labs 04/16/19 09:39 04/16/19 09:39 Diabetes panel 04/16/19 Range/Units 09:39 Sodium 139 (137-145) mmol/L Potassium 4.3 D (3.6-5.0) mmol/L Chloride 104.6 (98-107) mmol/L Carbon Dioxide 24 (22-30) mmol/L BUN 22 H (7-17) mg/dL Creatinine 0.6 L (0.7-1.2) mg/dL Glucose 134 H (65-100) mg/dL Calcium 8.1 L (8.4-10.2) mg/dL Calcium panel 04/16/19 Range/Units 09:39 Calcium 8.1 L (8.4-10.2) mg/dL Pituitary panel 04/16/19 Range/Units 09:39 Sodium 139 (137-145) mmol/L Potassium 4.3 D (3.6-5.0) mmol/L Chloride 104.6 (98-107) mmol/L Carbon Dioxide 24 (22-30) mmol/L BUN 22 H (7-17) mg/dL Creatinine 0.6 L (0.7-1.2) mg/dL Glucose 134 H (65-100) mg/dL Calcium 8.1 L (8.4-10.2) mg/dL Adrenal panel 04/16/19 Range/Units 09:39 Sodium 139 (137-145) mmol/L Potassium 4.3 D (3.6-5.0) mmol/L Chloride 104.6 (98-107) mmol/L Carbon Dioxide 24 (22-30) mmol/L BUN 22 H (7-17) mg/dL Creatinine 0.6 L (0.7-1.2) mg/dL Glucose 134 H (65-100) mg/dL Calcium 8.1 L (8.4-10.2) mg/dL
--- NOTE | 2019-04-16 14:01 | Discharge Summary ---
Providers - Providers Date of Admission: 04/14/19 06:49 Date of discharge: 04/16/19 Attending physician: YUE TANNER 04/14/19 05:30 Consult to Physician [CONS] Stat Comment: Dr. Chavez saw patient @ 13:00- LXM Consulting Provider: PETR CHAVEZ Physician Instructions: Reason For Exam: acute perforated appendicitis 04/15/19 10:29 Consult to Physician [CONS] Routine Comment: Consulting Provider: NEVA GUTIERREZ Physician Instructions: Reason For Exam: perforated appendicitis [facility] Condition: Fair Hospital course: Patient is 43 yo with no medical history presented to the emergency room complaining of lower abdominal pain especially the right lower quadrant. CT abdomen showed acute appendicitis with perforation. Surgeon was consulted. Started on IV fluids IV antibiotics nothing by mouth, admitted and evaluated by Surgeon. sodium. laparoscopic surgery was done showed acute appendicitis and perforated appendix with localized feculent peritonitis. Appendectomy was done. She was put on Unasyn and fluconazole by ID physician. Postoperatively she did well subsequently discharged home 04/16/19 on Augmentin. patient ruled in for sepsis. Total time spent on discharge, and discharge 31 minutes. Disposition: DC-01 TO HOME OR SELFCARE - Discharge Diagnoses (1) Acute perforated appendicitis Status: Acute (2) Sepsis Status: Acute (3) Peritonitis Status: Acute (4) TORI (acute kidney injury) Status: Acute (5) Hyponatremia Status: Acute (6) Leukocytosis Status: Acute (7) TORI (acute kidney injury) Status: Acute (8) Vasomotor nephropathy Status: Acute Core Measure Documentation - Palliative Care Palliative Care/ Comfort Measures: Not Applicable - Core Measures Any of the following diagnoses?: none Exam - Constitutional Vitals: Temp Pulse Resp BP Pulse Ox 97.7 F 57 L 18 120/78 96 04/16/19 04:06 04/16/19 04:06 04/16/19 04:06 04/16/19 04:06 04/16/19 04:06 Plan Activity: advance as tolerated Diet: low fat, low cholesterol Additional Instructions: 1.Follow up with PCP or [facility] in 1 week. 2.Follow up with Dr. Chavez in 1 week. 3.Keep surgical drain in. Follow up with: PETR CHAVEZ DO [Staff Physician] - 10 Days [place] [Primary Care Provider] - 3-5 Days Prescriptions: Amoxicillin/K Clav Tab [Augmentin 875 mg] 1 tab PO Q12HR #10 tab Fluconazole [Diflucan TAB] 200 mg PO QDAY #5 tablet oxyCODONE /ACETAMINOPHEN [Percocet 5/325 mg] 1 tab PO Q6H PRN #12 tablet PRN Reason: Pain, Moderate (4-6)
== END 2019-04-16 16:00 | disposition home or self-care (01) | DRG 853 ==
LOC: ED 03:00 → CC1 06:49 → IMCU 08:17 → 3A 14:07 → 3B-SURG 20:28
PROVIDERS: ADMIT Internal Medicine; ATTEND Internal Medicine
PROC: 0DTJ4ZZ Resection of Appendix, Percutaneous Endoscopic Approach (ICD-10-PCS; principal; 2019-04-14)
DX: A41.9 Sepsis, unspecified organism (principal); K35.32 Acute appendicitis with perforation, localized peritonitis, and gangrene, without abscess; N17.9 Acute kidney failure, unspecified; Z98.51 Tubal ligation status; Z82.49 Family history of ischemic heart disease and other diseases of the circulatory system; Z79.899 Other long term (current) drug therapy
CPT/HCPCS: 36415; 51702; 74176; 80048; 80053; 82140; 84703; 85007; 85025; 85027; 86140; 87040; 88304; 94760; 96361; 96365; 96375; G0378; A4217; J0295; J0692; J1100; J1450; J1885; J2270; J2405; J2543; J2704; J2710; J3010; J7030; J7120